=== PATIENT | male | born 1980 ===

== ENCOUNTER 2017-02-17 21:42 | Emergency (ER) | payer MEDICAID ==
[~2017-02-17] VITALS: Ht 170.2 cm; Wt 78.5 kg
[2017-02-17 21:50] VITALS: Ht 170.2 cm; Wt 78.5 kg
[2017-02-17] MEDS ORDERED: KETOROLAC 30 MG INJ IM STA (23:24)
[2017-02-17] MEDS ORDERED: HYDROCODONE/APAP (5/325) TAB PO ONE (23:30)
[2017-02-18] MEDS ORDERED: HYDR-906 PO (01:28)
[2017-02-18] MEDS ORDERED: IBUP-1542 PO (01:28)
[2017-02-18 01:51] VITALS: BP 105/74; PULSE 50; RESP 18; TEMP 98
--- NOTE | 2017-02-18 04:25 | ERD ---
ER Documentation Chief Complaint Chief Complaint lower back pain x 6 days HPI This is a 36-year-old male presenting to emerge department with acute lower back pain 5 days. Patient states pain started suddenly. No injury or trauma to area. Patient was not lifting anything heavy. Patient states pain starts in left side of lower back and radiates down left leg. No saddle anesthesia. No urinary or fecal incontinence. No fevers or chills. No chest pain, shortness of breath or difficulty breathing. No heart palpitations or chest pressure. No abdominal pain, nausea, vomiting or diarrhea. No dysuria, hematuria, urinary frequency or urgency. ROS All systems reviewed and are negative except as per history of present illness. Medications Home Meds Active Scripts Ibuprofen* (Motrin*) 600 Mg Tab, 600 MG PO Q6, #30 TAB Prov:TIFFANIE SCHROEDER NP 02/18/17 Hydrocodone/Acetaminophen ([place] 5-325 Tablet) 1 Each Tablet, 1 EACH PO Q6 Y for PAIN LEVEL 6-10, #7 TAB Prov:TIFFANIE SCHROEDER NP 02/18/17 Allergies Allergies: Coded Allergies: No Known Allergy (Unverified , 02/17/17) PMhx/Soc Medical and Surgical Hx: pt denies Medical Hx, pt denies Surgical Hx Hx Alcohol Use: No Hx Substance Use: No Hx Tobacco Use: No Smoking Status: Never smoker Physical Exam Vitals Vital Signs Date Time Temp Pulse Resp B/P Pulse Ox O2 Delivery O2 Flow Rate FiO2 02/18/17 01:51 98.0 50 18 105/74 98 Room Air 02/17/17 21:50 98.3 66 20 131/70 0 Physical Exam Const: No acute distress, alert Head: Atraumatic Eyes: Normal Conjunctiva ENT: Normal External Ears, Nose and Mouth. Neck: Full range of motion..~ No meningismus. Resp: Clear to auscultation bilaterally. No wheezing, rhonchi or crackles. No stridor or labored breathing. Cardio: Regular rate and rhythm, no murmurs Abd: Soft, non tender, non distended. Normal bowel sounds Skin: No petechiae or rashes Back: No midline or flank tenderness. No CVA tenderness. Positive straight leg raise to left leg. Ext: No cyanosis, or edema Neur: Awake and alert Psych: Normal Mood and Affect Results 24 hrs Current Medications Medications (Trade) Dose Ordered Sig/Kim Route PRN Reason Start Time Stop Time Status Last Admin Dose Admin Acetaminophen/ Hydrocodone Bitart ([place] (5/325)) 1 tab ONCE ONCE PO 02/17/17 23:30 02/17/17 23:31 DC 02/17/17 23:45 Ketorolac Tromethamine (Toradol) 30 mg ONCE STAT IM 02/17/17 23:24 02/17/17 23:25 DC 02/17/17 23:46 Procedures/MDM MDM: This is a 36-year-old male presenting to emergency department with left- sided lower back pain that radiates down left leg intermittently 5 days. Patient is afebrile vital signs are stable. No recent injury or trauma to area. Patient denies lifting anything heavy. No urinary or fecal incontinence. No saddle anesthesia. No neuro deficits. No headache. No chest pain, shortness of breath or difficulty breathing. No signs or symptoms of respiratory distress. Patient has positive straight leg raise on physical exam to left leg. Patient given Toradol 30 mg IM and [place] 5/325 mg p.o. while in the ED. Upon reassessment, patient states pain has improved significantly. Vital signs remained stable. Patient remains alert and in no acute distress. Low suspicion for cauda equina syndrome, acute fracture, acute dislocation, epidural abscess, malignancy and AAA rupture. Differential Diagnosis includes but is not limited to back strain, sciatica, vertebral fracture, herniated disc, spinal stenosis and nephrolithiasis. Patient is appropriate for outpatient management will be given prescription for [place] and ibuprofen. Instructed patient to follow-up with primary care provider in the next 2-3 days for reassessment and additional management. Return to ED for any high fever, chest pain, difficulty breathing, shortness breath, wheezing, vomiting, diarrhea, abdominal pain or any new or worsening symptoms. Patient verbalizes understanding. All questions answered at discharge. Disclaimer: Inadvertent spelling and grammatical errors are likely due to EHR/ dictation software use and do not reflect on the overall quality of patient care. Also, please note that the electronic time recorded on this note does not necessarily reflect the actual time of the patient encounter. Departure Diagnosis: Primary Impression: Back pain Back pain location: low back pain Chronicity: acute Back pain laterality: left Sciatica presence: with sciatica Sciatica laterality: sciatica of left side Qualified Code: M54.42 - Acute left-sided low back pain with left-sided sciatica Condition: Stable Patient Instructions: Back Pain W/ Sciatica [facility] Usted se kwon hecho un examen mdico de control que le indica que no est en cayla condicin que requiera tratamiento urgente en el Departamento de Emergencia. Un estudio ms profundo y el tratamiento de myers condicin pueden esperar sin ningn riesgo hasta que usted sea atendida/o en el consultorio de myers mdico o cayla cl delfino. Es responsabilidad suya arreglar cayla tia para el seguimiento del juana. MANEJO DE CONDICIONES NO URGENTES EN EL FUTURO 1) Si usted tiene un mdico de atencin primaria: Usted debera llamar a myers mdico de atencin primaria antes de venir al departamento de emergencia. Despus de las horas de consultorio, myers doctor o myers asociado/a est disponible por telfono. El mdico o enfermero de venkatesh en el servicio telefnico puede asesorarle por joseph medio para atender el problema, o juana contrario se puede programar calya tia. 2) Si usted no tiene un mdico de atencin primaria: Llame al mdico o clnica de referencia que aparece abajo farnaz las horas de consultorio para hacer cayla tia para que le vean. CLINICAS: [facility] [phone] [facility] [phone] [facility] [phone] [facility]. [place] [phone] [place] [phone] [place] [phone] [facility] () Usted se kwon hecho un examen mdico de control que le indica que no est en cayla condicin que requiera tratamiento urgente en el Departamento de Emergencia. Un estudio ms profundo y el tratamiento de myers condicin pueden esperar sin ningn riesgo hasta que usted sea atendida/o en el consultorio de myers mdico o cayla cl delfino. Es responsabilidad suya arreglar cayla tia para el seguimiento del juana. MANEJO DE CONDICIONES NO URGENTES EN EL FUTURO 1) Si usted tiene un mdico de atencin primaria: Usted debera llamar a myers mdico de atencin primaria antes de venir al departamento de emergencia. Despus de las horas de consultorio, myers doctor o myers asociado/a est disponible por telfono. El mdico o enfermero de venkatesh en el servicio telefnico puede asesorarle por joseph medio para atender el problema, o juana contrario se puede programar cayla tia. 2) Si usted no tiene un mdico de atencin primaria: Llame al mdico o condado institucions de referencia que aparece abajo farnaz las horas de consultorio para hacer cayla tia para que le vean. SI USTED NO PUEDE PAGAR PARA VALERIO UN MEDICO puede ir a: [facility] [address] [place] [address] [facility] [address] [place] [address] [facility] [address] [place] [address] PARA [facility] [address] [place] [address] Additional Instructions: Llame al doctor MAANA y kyler cayla TIA PARA DENTRO DE 2-3 HOUSE.Dgale a la secretaria que nosotros le instruimos hacer esta tia.Avise o llame si myers condicin se empeora antes de la tia. Regresa aqui si peor o no mejor. Vuelva a Ed para cualquier fiebre minoo, dolor en el pecho, dificultad para respirar, respiracin entrecortada, sibilancias, vmitos, diarrea, dolor abdominal o cualquier sntoma nuevo o empeoramiento. TIFFANIE SCHROEDER NP Feb 18, 2017 04:25
--- NOTE | 2017-02-18 04:25 | ERD ---
ER Documentation Chief Complaint Chief Complaint lower back pain x 6 days HPI This is a 36-year-old male presenting to emerge department with acute lower back pain 5 days. Patient states pain started suddenly. No injury or trauma to area. Patient was not lifting anything heavy. Patient states pain starts in left side of lower back and radiates down left leg. No saddle anesthesia. No urinary or fecal incontinence. No fevers or chills. No chest pain, shortness of breath or difficulty breathing. No heart palpitations or chest pressure. No abdominal pain, nausea, vomiting or diarrhea. No dysuria, hematuria, urinary frequency or urgency. ROS All systems reviewed and are negative except as per history of present illness. Medications Home Meds Active Scripts Ibuprofen* (Motrin*) 600 Mg Tab, 600 MG PO Q6, #30 TAB Prov:TIFFANIE SCHROEDER NP 02/18/17 Hydrocodone/Acetaminophen ([place] 5-325 Tablet) 1 Each Tablet, 1 EACH PO Q6 Y for PAIN LEVEL 6-10, #7 TAB Prov:TIFFANIE SCHROEDER NP 02/18/17 Allergies Allergies: Coded Allergies: No Known Allergy (Unverified , 02/17/17) PMhx/Soc Medical and Surgical Hx: pt denies Medical Hx, pt denies Surgical Hx Hx Alcohol Use: No Hx Substance Use: No Hx Tobacco Use: No Smoking Status: Never smoker Physical Exam Vitals Vital Signs Date Time Temp Pulse Resp B/P Pulse Ox O2 Delivery O2 Flow Rate FiO2 02/18/17 01:51 98.0 50 18 105/74 98 Room Air 02/17/17 21:50 98.3 66 20 131/70 0 Physical Exam Const: No acute distress, alert Head: Atraumatic Eyes: Normal Conjunctiva ENT: Normal External Ears, Nose and Mouth. Neck: Full range of motion..~ No meningismus. Resp: Clear to auscultation bilaterally. No wheezing, rhonchi or crackles. No stridor or labored breathing. Cardio: Regular rate and rhythm, no murmurs Abd: Soft, non tender, non distended. Normal bowel sounds Skin: No petechiae or rashes Back: No midline or flank tenderness. No CVA tenderness. Positive straight leg raise to left leg. Ext: No cyanosis, or edema Neur: Awake and alert Psych: Normal Mood and Affect Results 24 hrs Current Medications Medications (Trade) Dose Ordered Sig/Kim Route PRN Reason Start Time Stop Time Status Last Admin Dose Admin Acetaminophen/ Hydrocodone Bitart ([place] (5/325)) 1 tab ONCE ONCE PO 02/17/17 23:30 02/17/17 23:31 DC 02/17/17 23:45 Ketorolac Tromethamine (Toradol) 30 mg ONCE STAT IM 02/17/17 23:24 02/17/17 23:25 DC 02/17/17 23:46 Procedures/MDM MDM: This is a 36-year-old male presenting to emergency department with left- sided lower back pain that radiates down left leg intermittently 5 days. Patient is afebrile vital signs are stable. No recent injury or trauma to area. Patient denies lifting anything heavy. No urinary or fecal incontinence. No saddle anesthesia. No neuro deficits. No headache. No chest pain, shortness of breath or difficulty breathing. No signs or symptoms of respiratory distress. Patient has positive straight leg raise on physical exam to left leg. Patient given Toradol 30 mg IM and [place] 5/325 mg p.o. while in the ED. Upon reassessment, patient states pain has improved significantly. Vital signs remained stable. Patient remains alert and in no acute distress. Low suspicion for cauda equina syndrome, acute fracture, acute dislocation, epidural abscess, malignancy and AAA rupture. Differential Diagnosis includes but is not limited to back strain, sciatica, vertebral fracture, herniated disc, spinal stenosis and nephrolithiasis. Patient is appropriate for outpatient management will be given prescription for [place] and ibuprofen. Instructed patient to follow-up with primary care provider in the next 2-3 days for reassessment and additional management. Return to ED for any high fever, chest pain, difficulty breathing, shortness breath, wheezing, vomiting, diarrhea, abdominal pain or any new or worsening symptoms. Patient verbalizes understanding. All questions answered at discharge. Disclaimer: Inadvertent spelling and grammatical errors are likely due to EHR/ dictation software use and do not reflect on the overall quality of patient care. Also, please note that the electronic time recorded on this note does not necessarily reflect the actual time of the patient encounter. Departure Diagnosis: Primary Impression: Back pain Back pain location: low back pain Chronicity: acute Back pain laterality: left Sciatica presence: with sciatica Sciatica laterality: sciatica of left side Qualified Code: M54.42 - Acute left-sided low back pain with left-sided sciatica Condition: Stable Patient Instructions: Back Pain W/ Sciatica Ref[facility]: [facility] Usted se kwon hecho un examen mdico de control que le indica que no est en cayla condicin que requiera tratamiento urgente en el Departamento de Emergencia. Un estudio ms profundo y el tratamiento de myers condicin pueden esperar sin ningn riesgo hasta que usted sea atendida/o en el consultorio de myers mdico o cayla cl delfino. Es responsabilidad suya arreglar cayla tia para el seguimiento del juana. MANEJO DE CONDICIONES NO URGENTES EN EL FUTURO 1) Si usted tiene un mdico de atencin primaria: Usted debera llamar a myers mdico de atencin primaria antes de venir al departamento de emergencia. Despus de las horas de consultorio, myers doctor o myers asociado/a est disponible por telfono. El mdico o enfermero de venkatesh en el servicio telefnico puede asesorarle por joseph medio para atender el problema, o juana contrario se puede programar cayla tia. 2) Si usted no tiene un mdico de atencin primaria: Llame al mdico o clnica de referencia que aparece abajo farnaz las horas de consultorio para hacer cayla tia para que le vean. CLINICAS: [facility] [phone] [facility] [phone] [facility] [phone] [address] [facility]. [place] [phone] [place] [phone] [address] [place] [phone] [facility] () Usted se kwon hecho un examen mdico de control que le indica que no est en cayla condicin que requiera tratamiento urgente en el Departamento de Emergencia. Un estudio ms profundo y el tratamiento de myers condicin pueden esperar sin ningn riesgo hasta que usted sea atendida/o en el consultorio de myers mdico o cayla cl delfino. Es responsabilidad suya arreglar cayla tia para el seguimiento del juana. MANEJO DE CONDICIONES NO URGENTES EN EL FUTURO 1) Si usted tiene un mdico de atencin primaria: Usted debera llamar a myers mdico de atencin primaria antes de venir al departamento de emergencia. Despus de las horas de consultorio, myers doctor o myers asociado/a est disponible por telfono. El mdico o enfermero de venkatesh en el servicio telefnico puede asesorarle por joseph medio para atender el problema, o juana contrario se puede programar cayla tia. 2) Si usted no tiene un mdico de atencin primaria: Llame al mdico o condado institucions de referencia que aparece abajo farnaz las horas de consultorio para hacer cayla tia para que le vean. SI USTED NO PUEDE PAGAR PARA VALERIO UN MEDICO puede ir a: [facility] [address] [place] [address] [facility] [address] [place] [address] [facility] [address] [place] [address] PARA [facility] [address] [place] [address] Additional Instructions: Llame al doctor MAANA y kyler cayla TIA PARA DENTRO DE 2-3 HOUSE.Dgale a la secretaria que nosotros le instruimos hacer esta tia.Avise o llame si myers condicin se empeora antes de la tia. Regresa aqui si peor o no mejor. Vuelva a Ed para cualquier fiebre minoo, dolor en el pecho, dificultad para respirar, respiracin entrecortada, sibilancias, vmitos, diarrea, dolor abdominal o cualquier sntoma nuevo o empeoramiento. TIFFANIE SCHROEDER NP Feb 18, 2017 04:25
--- NOTE | 2017-02-18 04:25 | ERD ---
ER Documentation Chief Complaint Chief Complaint lower back pain x 6 days HPI This is a 36-year-old male presenting to emerge department with acute lower back pain 5 days. Patient states pain started suddenly. No injury or trauma to area. Patient was not lifting anything heavy. Patient states pain starts in left side of lower back and radiates down left leg. No saddle anesthesia. No urinary or fecal incontinence. No fevers or chills. No chest pain, shortness of breath or difficulty breathing. No heart palpitations or chest pressure. No abdominal pain, nausea, vomiting or diarrhea. No dysuria, hematuria, urinary frequency or urgency. ROS All systems reviewed and are negative except as per history of present illness. Medications Home Meds Active Scripts Ibuprofen* (Motrin*) 600 Mg Tab, 600 MG PO Q6, #30 TAB Prov:TIFFANIE SCHROEDER NP 02/18/17 Hydrocodone/Acetaminophen ([place] 5-325 Tablet) 1 Each Tablet, 1 EACH PO Q6 Y for PAIN LEVEL 6-10, #7 TAB Prov:TIFFANIE SCHROEDER NP 02/18/17 Allergies Allergies: Coded Allergies: No Known Allergy (Unverified , 02/17/17) PMhx/Soc Medical and Surgical Hx: pt denies Medical Hx, pt denies Surgical Hx Hx Alcohol Use: No Hx Substance Use: No Hx Tobacco Use: No Smoking Status: Never smoker Physical Exam Vitals Vital Signs Date Time Temp Pulse Resp B/P Pulse Ox O2 Delivery O2 Flow Rate FiO2 02/18/17 01:51 98.0 50 18 105/74 98 Room Air 02/17/17 21:50 98.3 66 20 131/70 0 Physical Exam Const: No acute distress, alert Head: Atraumatic Eyes: Normal Conjunctiva ENT: Normal External Ears, Nose and Mouth. Neck: Full range of motion..~ No meningismus. Resp: Clear to auscultation bilaterally. No wheezing, rhonchi or crackles. No stridor or labored breathing. Cardio: Regular rate and rhythm, no murmurs Abd: Soft, non tender, non distended. Normal bowel sounds Skin: No petechiae or rashes Back: No midline or flank tenderness. No CVA tenderness. Positive straight leg raise to left leg. Ext: No cyanosis, or edema Neur: Awake and alert Psych: Normal Mood and Affect Results 24 hrs Current Medications Medications (Trade) Dose Ordered Sig/Kim Route PRN Reason Start Time Stop Time Status Last Admin Dose Admin Acetaminophen/ Hydrocodone Bitart ([place] (5/325)) 1 tab ONCE ONCE PO 02/17/17 23:30 02/17/17 23:31 DC 02/17/17 23:45 Ketorolac Tromethamine (Toradol) 30 mg ONCE STAT IM 02/17/17 23:24 02/17/17 23:25 DC 02/17/17 23:46 Procedures/MDM MDM: This is a 36-year-old male presenting to emergency department with left- sided lower back pain that radiates down left leg intermittently 5 days. Patient is afebrile vital signs are stable. No recent injury or trauma to area. Patient denies lifting anything heavy. No urinary or fecal incontinence. No saddle anesthesia. No neuro deficits. No headache. No chest pain, shortness of breath or difficulty breathing. No signs or symptoms of respiratory distress. Patient has positive straight leg raise on physical exam to left leg. Patient given Toradol 30 mg IM and [place] 5/325 mg p.o. while in the ED. Upon reassessment, patient states pain has improved significantly. Vital signs remained stable. Patient remains alert and in no acute distress. Low suspicion for cauda equina syndrome, acute fracture, acute dislocation, epidural abscess, malignancy and AAA rupture. Differential Diagnosis includes but is not limited to back strain, sciatica, vertebral fracture, herniated disc, spinal stenosis and nephrolithiasis. Patient is appropriate for outpatient management will be given prescription for [place] and ibuprofen. Instructed patient to follow-up with primary care provider in the next 2-3 days for reassessment and additional management. Return to ED for any high fever, chest pain, difficulty breathing, shortness breath, wheezing, vomiting, diarrhea, abdominal pain or any new or worsening symptoms. Patient verbalizes understanding. All questions answered at discharge. Disclaimer: Inadvertent spelling and grammatical errors are likely due to EHR/ dictation software use and do not reflect on the overall quality of patient care. Also, please note that the electronic time recorded on this note does not necessarily reflect the actual time of the patient encounter. Departure Diagnosis: Primary Impression: Back pain Back pain location: low back pain Chronicity: acute Back pain laterality: left Sciatica presence: with sciatica Sciatica laterality: sciatica of left side Qualified Code: M54.42 - Acute left-sided low back pain with left-sided sciatica Condition: Stable Patient Instructions: Back Pain W/ Sciatica Referrals: [facility] Usted se kwon hecho un examen mdico de control que le indica que no est en cayla condicin que requiera tratamiento urgente en el Departamento de Emergencia. Un estudio ms profundo y el tratamiento de myers condicin pueden esperar sin ningn riesgo hasta que usted sea atendida/o en el consultorio de myers mdico o cayla cl delfino. Es responsabilidad suya arreglar cayla tia para el seguimiento del juana. MANEJO DE CONDICIONES NO URGENTES EN EL FUTURO 1) Si usted tiene un mdico de atencin primaria: Usted debera llamar a myers mdico de atencin primaria antes de venir al departamento de emergencia. Despus de las horas de consultorio, myers doctor o myers asociado/a est disponible por telfono. El mdico o enfermero de venkatesh en el servicio telefnico puede asesorarle por joseph medio para atender el problema, o juana contrario se puede programar cayla tia. 2) Si usted no tiene un mdico de atencin primaria: Llame al mdico o clnica de referencia que aparece abajo farnaz las horas de consultorio para hacer cayla tia para que le vean. CLINICAS: [facility] [phone] [facility] [phone] [facility] [phone] [address] [facility]. [place] [phone] [place] [phone] [place] [phone] [facility] () Usted se kwon hecho un examen mdico de control que le indica que no est en cayla condicin que requiera tratamiento urgente en el Departamento de Emergencia. Un estudio ms profundo y el tratamiento de myers condicin pueden esperar sin ningn riesgo hasta que usted sea atendida/o en el consultorio de myers mdico o cayla cl delfino. Es responsabilidad suya arreglar cayla tia para el seguimiento del juana. MANEJO DE CONDICIONES NO URGENTES EN EL FUTURO 1) Si usted tiene un mdico de atencin primaria: Usted debera llamar a myers mdico de atencin primaria antes de venir al departamento de emergencia. Despus de las horas de consultorio, myers doctor o myers asociado/a est disponible por telfono. El mdico o enfermero de venkatesh en el servicio telefnico puede asesorarle por joseph medio para atender el problema, o juana contrario se puede programar cayla tia. 2) Si usted no tiene un mdico de atencin primaria: Llame al mdico o condado institucions de referencia que aparece abajo farnaz las horas de consultorio para hacer cayla tia para que le vean. SI USTED NO PUEDE PAGAR PARA VALERIO UN MEDICO puede ir a: [facility] [address] [place] [address] [facility] [address] [place] [address] [facility] [address] [place] [address] PARA [facility] [address] [place] [address] Additional Instructions: Llame al doctor MAANA y kyler calya TIA PARA DENTRO DE 2-3 HOUSE.Dgale a la secretaria que nosotros le instruimos hacer esta tia.Avise o llame si myers condicin se empeora antes de la tia. Regresa aqui si peor o no mejor. Vuelva a Ed para cualquier fiebre minoo, dolor en el pecho, dificultad para respirar, respiracin entrecortada, sibilancias, vmitos, diarrea, dolor abdominal o cualquier sntoma nuevo o empeoramiento. TIFFANIE SCHROEDER NP Feb 18, 2017 04:25
== END 2017-02-18 01:54 | disposition home or self-care (01) ==
LOC: FTE 21:42
DX: M54.42 Lumbago with sciatica, left side (principal)
CPT/HCPCS: 96372; J1885; Z7502; Z7610